=== PATIENT | male | born 1965 | race Caucasian/White ===

== ENCOUNTER 2022-12-10 08:57 | Emergency (ER) | payer OTHER, SELFPAY ==
[2022-12-10 08:59] VITALS: BP 172/84; PULSE 86; RESP 14; TEMP 36.2; O2SAT 97; BMI 30.2
--- NOTE | 2022-12-10 09:14 | CT_ITS ---
STUDY: CT SOFT TISSUE NECK WITH CONTRAST REASON FOR EXAM: Male, 57 years old. Suspected tongue cancer with right-sided cervical RADIATION DOSAGE (If Supplied By Facility): CTDIvol = ( 12.20 ) mGy, DLP = ( 368.74 ) mGycm TECHNIQUE: The patient was scanned in a multi-detector CT scanner. High resolution transaxial imaging was performed following intravenous administration of 75mL Isvoue 370. Sagittal and coronal images were reconstructed. Individualized dose optimization techniques were used for this CT. COMPARISON: None. FINDINGS: Abnormal suspicious soft tissue densities lateral to the right carotid vessels with subtle heterogeneous enhancement. These soft tissue densities are suspicious for likely metastatic adenopathy. Largest measures 1.72 x 3.16 cm, the next largest measures 2.24 x 1.57 cm. They are not occluding or impinging upon the right ICA or ECA. There are multiple other associated lymph nodes but all of these measure less than 1 cm in short axis dimension. No suspicious adenopathy noted in the left half of the neck. A PET/CT study could be performed to determine if these are metabolically active or biopsy could be performed for tissue sampling. Normal bilateral parotid glands. Normal bilateral superintendent plant spaces. Normal bilateral parapharyngeal spaces. Normal bilateral carotid spaces. Normal bilateral sublingual and submandibular glands and spaces. Normal visualized nasopharynx. Normal retropharyngeal space. Normal perivertebral space. Normal visualized bilateral faucial tonsils. The visualized tongue, tongue base and oropharynx are normal. . Normal epiglottis, bilateral vallecula and hypopharynx. The pre-epiglottic and paraglottic adipose spaces are normal. Normal visualized bilateral piriform sinuses, aryepiglottic folds, vocal cords, and arytenoid-cricoid articulations. Normal subglottic trachea. Normal bilateral lobes of the thyroid gland. Normal visualized pulmonary apices. There is multilevel degenerative changes of the cervical spine. CT/Soft Tissue Neck WITH Contrast IMPRESSION: Suspicious cluster of soft tissue densities between the right parotid gland and the carotid vessels concerning for metastatic lymphadenopathy. Largest of these soft tissue densities measures 1.72 x 3.16 cm. There are also multiple subcentimeter in short axis dimension lymph nodes in the right neck. There are only a few scattered physiologic lymph nodes noted in the left neck. No airway narrowing or deviation Degenerative changes throughout the cervical spine, no demonstrated fracture or suspicious osseous lesion Lung apices are clear Electronically Signed: Kojo Mcintyre MD at 10:38 EST ,
--- NOTE | 2022-12-10 09:14 | CT_ITS ---
STUDY: CT BRAIN WITHOUT CONTRAST REASON FOR EXAM: Male, 57 years old. Oral cancer RADIATION DOSAGE (If Supplied By Facility): CTDIvol = ( 44.99 ) mGy, DLP = ( 846.73 ) mGycm TECHNIQUE: Transaxial CT imaging of the brain was performed without administration of intravenous contrast material. Individualized dose optimization techniques were used for this CT. COMPARISON: No relevant priors. FINDINGS: Normal soft tissue structures. Normal calvarium. There is mild cerebral atrophy with widening of the extra-axial spaces and ventricular dilatation. There are areas of decreased attenuation within the white matter tracts of the supratentorial brain, consistent with microvascular disease changes. Normal basal ganglia and thalami. Normal brainstem. Normal cerebellum. There is no intracranial hemorrhage. There are no findings of an acute ischemic infarction. There is mucoperiosteal inflammatory disease of the paranasal sinuses consistent with moderate chronic sinusitis. Occlusion of both ostiomeatal complexes CT/Brain/Head without Contrast IMPRESSION: Chronic involutional changes of the brain. No acute hemorrhage Electronically Signed: Kojo Mcintyre MD at 10:30 EST ,
--- NOTE | 2022-12-10 09:16 | EDS_ITS ---
HPI HPI - URI History of Present Illness Chief Complaint: Edema Detail of Chief Complaint: Right-sided tongue swelling for 3 months. Informant: patient Onset/Context/Timing Onset: Month(s) Context: Gradual Onset Timing: Continuous Current Severity: Moderate Maximum Severity: Moderate Narrative Narrative: 57-year-old male goes to the [facility]. Prior tonsillectomy and treated for hypertension. He has had right-sided tongue swelling for 3 months and now has swelling to his right side of his face and right anterior neck for last 2 weeks. He has had about a 14 pound weight loss. He smokes 2 packs a day for last 40 years. Drinks almost daily. No history of cancer. Was seen today in urgent care and sent to the emergency department. Prior similar symptoms: Yes Recent Illness/Hospitalization: No ROS ROS ED ROS Narrative Tongue swelling. Constitutional Constitutional ED: Denies chills Eyes Eyes: Denies blurry vision ENT ENT ED: Denies ear pain Cardiovascular Cardiovascular: Denies chest pain or palpitations Respiratory/Chest Respiratory/Chest: Denies cough or dyspnea Gastrointestinal Gastrointestinal: Denies abdominal pain, constipation or diarrhea Genitourinary Genitourinary ED: Denies dysuria or hematuria Musculoskeletal Musculoskeletal: Denies arthralgias, back pain or myalgias Integumentary Denies abscess or Abrasions Neurologic Neurologic: Denies headache(s) Psychiatric Psychiatric: Denies anxiety Endocrine Endocrinology: Denies cold intolerance Hematologic/Lymphatic Hematologic/Lymphatic: Denies easy bleeding Allergic/Immunologic Allergic/Immunologic ED: Reports tongue swelling; Denies mouth swelling PFSH PFSH Medical History no medical history Allergy/AdvReac Type Severity Reaction Status Date / Time No Known Allergies Allergy Verified 12/10/22 08:58 Surgical History no surgical history Social History Smoking Status: Never smoker EXAM Physical Exam Narrative Exam Narrative: 37-year-old male no acute distress. Vital signs are stable afebrile. H EENT exam right TM normal old healed perforation. Right side of his tongue is swollen has a firm hard mass along the right lateral aspect of the tongue very concerning for malignancy. He has false teeth. No trouble swallowing or breathing. Neck is anterior lymphadenopathy on the right side of his trachea is midline. Lungs clear. Heart regular rhythm. Abdomen soft nontender. Moving all 4 extremities. Nontender no edema. Normal strength. Neurologically is awake and alert with no focal motor deficits. Const Vital Signs: 12/10/22 08:59 12/10/22 09:01 Temperature 97.2 F L Temperature Source Temporal Pulse Rate 86 Respiratory Rate 14 Respiratory Pattern Normal Blood Pressure 172/84 H Blood Pressure Mean 113 Pulse Ox 97 Oxygen Delivery Method Room Air Positive well nourished and well developed; Negative for cachectic or contractures General Appearance ED: well developed and NAD; Negative for cachectic, contractures, cyanotic, diaphoretic or pallor Nutritional Appearance: Negative for cachectic HEENT Reports moist mucous membranes; Denies dry mucous membranes HEENT Narrative: Swollen right side of his tongue. Hard mass concerning for malignancy. No trouble swallowing or breathing. normocephalic and atraumatic Mouth ED: No dry mucous membranes Mouth: No dry mucous membranes Throat: posterior oropharynx normal Eyes PERRL and EOMs intact bilaterally General Eye ED: Negative for pale conjunctiva or scleral icterus Neck No no lymphadenopathy, supple, no meningeal signs and no JVD General: anterior neck swelling and lymphadenopathy Resp normal respiratory effort and clear to auscultation bilaterally Effort and Inspection: Negative for retractions Auscultation: Negative for rales, rhonchi or wheezes Cardio S1 normal heart sound, S2 normal heart sound and no murmurs Rate: regular rate Rhythm: regular rhythm GI non-tender, non-distended and no masses Inspection: Negative for abdominal distention Auscultation: normoactive bowel sounds Palpation: soft; Negative for tender Back/Spine no CVA tenderness and normal ROM General Back: Negative for CVA tenderness Cervical Spine: Negative for cervical spine tenderness Thoracic Spine / Upper Back: Negative for thoracic spinal tenderness Lumbar Spine / Lower Back: Negative for lumbar spinal tenderness Sacrum: Negative for tenderness Extremity normal to inspection and full ROM General Extremety ED: Negative for cyanosis or tenderness General Extremity: Negative for cyanosis Neuro oriented x3 and CN's II-XII intact bilaterally Sensorium / Orientation: alert, oriented to person, oriented to place and oriented to time; Negative for orientation impaired, lethargic or stuporous Motor Exam: strength 5/5 throughout Psych mental status grossly normal Appearance: Negative for other Attitude: No agitated Mood & Affect: Negative for depressed, anxious or tearful Skin General Skin Exam: Negative for jaundice or pallor Lesions: no lesions Rashes: no rashes Trauma: Negative for abrasion MDM MDM MDM Narrative Medical decision making narrative: 57-year-old male with longtime history of smoking and alcohol use. Very concerning for a oral malignancy in the right side of his tongue with metastases to his lymph nodes. head and neck is being obtained. Repeat exam unchanged. Discussed test results and CAT scan with the patient. He will be referred to Dr. Raymond Bailey of ENT. [facility] He knows my concern. I instructed him to call them today to get close follow-up and follow-up with a ENT either locally or with the [place]. He is doing well currently. No trouble swallowing or breathing. Lab Data Attestation: I reviewed the patient's lab results. Lab results narrative: CBC normal. White count of 7. H&H is 16 and 50. Platelet count of 303. Electrolytes sodium 134. Gap of 7 normal BUN and creatinine. Normal liver enzymes. Glucose of 120. Alk phos of 134. CAT scan is concerning for oral cancer with lymphadenopathy in the neck. Labs: Laboratory Results - last 24 hr 12/10/22 12/10/22 09:30 09:30 WBC 7.4 RBC 5.68 Hgb 16.7 H Hct 50.1 MCV 88.2 MCH 29.4 MCHC 33.3 RDW Std Deviation 42.1 RDW Coeff of Mary 13.0 Plt Count 303 MPV 9.2 Immature Gran % (Auto) 0.800 Neut % (Auto) 68.5 Lymph % (Auto) 18.9 L [place] % (Auto) 8.1 Eos % (Auto) 2.8 Baso % (Auto) 0.9 Absolute Neuts (auto) 5.1 Absolute Lymphs (auto) 1.40 Nucleated RBC % 0 Sodium 134 L Potassium 4.2 Chloride 98 Carbon Dioxide 29.0 Anion Gap 7 BUN 13 Creatinine 0.85 Estim Creat Clear Calc 93.57 Est GFR (MDRD) Af Amer 119 Est GFR (MDRD) Non-Af 98 BUN/Creatinine Ratio 15.3 Glucose 120 H Calcium 9.2 Total Bilirubin 0.50 AST 29 ALT 61 Alkaline Phosphatase 134 H Total Protein 8.0 Albumin 3.8 Globulin 4.2 Albumin/Globulin Ratio 0.9 Radiography Diagnostic Testing: Clinical Impression(s) from Imaging Studies Brain CT 12/10/22 09:14 IMPRESSION: Chronic involutional changes of the brain. No acute hemorrhage Electronically Signed: Kojo Mcintyre MD at 10:30 EST , Soft Tissue Neck CT 12/10/22 09:14 IMPRESSION: Suspicious cluster of soft tissue densities between the right parotid gland and the carotid vessels concerning for metastatic lymphadenopathy. Largest of these soft tissue densities measures 1.72 x 3.16 cm. There are also multiple subcentimeter in short axis dimension lymph nodes in the right neck. There are only a few scattered physiologic lymph nodes noted in the left neck. No airway narrowing or deviation Degenerative changes throughout the cervical spine, no demonstrated fracture or suspicious osseous lesion Lung apices are clear Electronically Signed: Kojo Mcintyre MD at 10:38 EST , Discharge Plan Triage Chief Complaint: Edema ED Provider: Tolu Gilliland Dx/Rx/DC Orders Clinical Impression: Cancer of tongue Instructions: ED Tumor, Uncertain Cause Primary Care Provider: [facility] Referrals: Marv Torres MD [Med Staff - Active Staff] - As soon as possible [facility] [Primary Care Provider] - 1 Day Activity Restrictions/Additional Instructions: Call the [employer] [place] Friday. Tell them my concern is you may have developed tongue cancer with spread to the lymph nodes in your neck. This is not a confirmed diagnosis at this time you need a biopsy of your tongue. They need to get you in with them and a tailor men's ready to wear as soon as possible to get a biopsy, make a diagnosis and start treatment as soon as possible. This is very important. Please do not wait. If you can we have the ear nose and throat doctors here in [place] that you can follow-up with. Disposition Disposition: Home, Self Care
[2022-12-10 09:45] LABS: Absolute Neutrophil Count 5.1 X10^3/uL (2.0-7.7); Basophil# 0.07 X10^3/uL; Basophil% 0.9 % (0-1); Eosinophil# 0.21 X10^3/uL; Eosinophils% 2.8 % (0-5); Hematocrit 50.1 % (40-54); Hemoglobin 16.7 g/dL (13.0-16.5); Lymphocyte % 18.9 % (19-41); Mean Corp Hgb Conc 33.3 g/dL (32-36); Mean Corpuscular Hgb 29.4 pg (27.0-32.0); Mean Corpuscular Volume 88.2 fL (80-94); Mean Platelet Vol. 9.2 fl (6.2-12.0); Monocyte% 8.1 % (0-10); NRBC Flagged by Analyzer 0 % (0-5); Neutrophil # 5.05 X10^3/uL (2.7-7.7); Neutrophil % 68.5 % (47-70); Platelet Count 303 K/mm3 (150-450); RBC Distribution Width SD 42.1 fl (35.1-43.9); Red Blood Count 5.68 M/mm3 (4.6-6.2); White Blood Count 7.4 K/mm3 (4.4-11.0)
[2022-12-10 10:09] LABS: ALB/GLOB Ratio 0.9 RATIO (0.9-2.4); AST(SGOT) 29 U/L (15-37); Alanine Aminotransfer ALT/SGPT 61 U/L (16-61); Albumin, Serum 3.8 g/dL (3.2-5.0); Alkaline Phosphatase 134 U/L (45-117); Anion Gap 7 (5-15); BUN 13 mg/dL (7-18); BUN/Creat Ratio 15.3 RATIO (10-20); Calcium,Total 9.2 mg/dL (8.5-10.1); Chloride 98 mmol/L (98-107); Creatinine, Serum 0.85 mg/dL (0.70-1.30); EST Glomerular Filtration Rate 98 mL/min (>60); Est Glom Filt Rate - Afr Amer 119 mL/min (>60); Estimated Creatinine Clearance 93.57 ml/min; Globulin 4.2 g/dL (2.2-4.2); Glucose 120 mg/dL (74-106); Potassium 4.2 mmol/L (3.5-5.1); Sodium Level 134 mmol/L (136-145)
[2022-12-10 11:38] VITALS: BP 128/74; PULSE 68; RESP 15; O2SAT 97
== END 2022-12-10 11:40 | disposition home or self-care (01) ==
PROVIDERS: Emergency Provider Emergency Medicine; Visit Provider Emergency Medicine
DX: C02.9 Malignant neoplasm of tongue, unspecified (principal); I10 Essential (primary) hypertension; R60.9 Edema, unspecified; F17.210 Nicotine dependence, cigarettes, uncomplicated
CPT/HCPCS: 70450; 70491; 80053; 85025; 99283; Q9967; A4216

== ENCOUNTER 2023-04-20 18:05 | Emergency (ER) | payer OTHER, SELFPAY ==
[2023-04-20] VITALS (19 sets, daily range): BP systolic 111–162; BP diastolic 63–93; PULSE 88–117; RESP 12–26; TEMP 35.9; O2SAT 5–100; BMI 22.4
--- NOTE | 2023-04-20 18:25 | CT_ITS ---
STUDY: CTA CHEST REASON FOR EXAM: Male, 58 years old. Dyspnea. History of tongue cancer. RADIATION DOSAGE (If Supplied By Facility): CTDIvol = ( 29.04 ) mGy, DLP = ( 2864.26 ) mGycm TECHNIQUE: The examination was performed with the intravenous administration of IV 100mL Isovue-370. Post-processing of the angiographic images was performed, with multiplanar reformation and 3D reconstruction. Individualized dose optimization techniques were used for this CT. COMPARISON: Chest, April 20, 2023. FINDINGS: Normal enhancement of the main pulmonary artery and right and left pulmonary arteries. Normal enhancement of the bilateral peripheral pulmonary arteries. There is no demonstrated pulmonary embolism. Atherosclerotic changes of the thoracic aorta without aneurysm. There is no demonstrated aortic dissection. Normal heart and pericardium. Coronary artery calcifications. There is a 3.4 x 3.7 x 5 cm soft tissue mass in the subcarinal region there is a calcified lymph node due to its left. There is a 2.9 x 2.4 x 3.8 cm paratracheal lymph node as well as a 2.0 x 1.4 x 1.9 cm AP window lymph node. There is soft tissue mass in the right hilum measuring 2.8 x 2.3 x 3.1 cm in the lower left hilum there is a 3.9 x 3.1 x 1.6 cm soft tissue mass. This appears to extend outward into enlarged bronchi of the posterior right lower lobe when correlated with the plain film findings. Normal visualized trachea and left bronchi. The lungs are hyper expanded, with flattening of the hemidiaphragms. There is pleural-based density in the right lung base. There is minimal atelectatic changes in the right upper lobe along the oblique fissure with a vague 4 mm nodular density in the right upper lobe best seen on image 104 of series 3 using lung windows. A 1 cm calcified granuloma seen posteriorly in the left lower lobe. Minimal pleural thickening in the posterior right lung base with linear calcifications along the posterior pleural surface.. There is evidence of a fracture of the posterior left 10th rib thought to be a pathologic fracture with surrounding soft tissue mass. At the base of the neck there are large low attenuation masses which are incompletely visualized. That on the right measures 4.9 x 3.6 cm. The left mass measures 4.9 x 6.7 cm. Both extend upward into the neck. Relative changes of the thoracic spine. There is a soft tissue mass arising from the anterior aspect of the eighth vertebral body extending into the anterior soft tissues which measures 1.7 x 1.8 x 1.6 cm. There is also a low-attenuation mass in the right vertebral body of T9 measuring 1.4 x 1.3 x 1.2 cm. Enlarged fatty infiltrated liver without focal mass. CT/CTA Chest W/WO Contrast IMPRESSION: 1. No evidence of pulmonary embolus. 2. No aortic dissection or aneurysm. 3. Mediastinal and right hilar lymphadenopathy. 4. Soft tissue extending from the right hilum along the bronchi into the right lower lobe with atelectasis and pleural reaction. 5. Small nodular density in the right upper lobe. 6. Calcified granuloma in the left lung base. 7. Large necrotic soft tissue masses at the base of the neck. These are incompletely evaluated. 8. Metastatic foci within the thoracic spine. 9. Metastatic fracture of the left posterior seventh rib with associated soft tissue mass. Electronically Signed: Owen Thomas DO at 20:07 EDT Reading Location ID and State: [id number] Tel [phone], Service support ,
--- NOTE | 2023-04-20 18:25 | EKG12_ITS ---
Test Reason : DYSRHYTHMIA Blood Pressure : / mmHG Vent. Rate : 107 BPM Atrial Rate : 107 BPM P-R Int : 226 ms QRS Dur : 126 ms QT Int : 334 ms P-R-T Axes : 060 -63 086 degrees QTc Int : 445 ms Sinus tachycardia with 1st degree A-V block Left axis deviation Left bundle branch block Abnormal ECG Confirmed by HASMUKH LUNDY, CRISTOFER ([id number]), editor at [employer] ([id number]) on 04/21/2023 10:21:28 AM Referred By: PRIYA Confirmed By:CRISTOFER NOE MD
--- NOTE | 2023-04-20 18:25 | CT_ITS ---
STUDY: CTA HEAD AND NECK WITH CONTRAST REASON FOR EXAM: Male, 58 years old. Chest pain. History of tongue cancer. RADIATION DOSAGE (If Supplied By Facility): CTDIvol = ( 29.04 ) mGy, DLP = ( 2864.26 ) mGycm TECHNIQUE: CT angiography was performed with a multi-detector CT scanner. Data acquisition was obtained from the skull base through the vertex following intravenous administration of IV 100mL Isovue-370. MIP images were reconstructed from the axial data set. Post-processing of the angiographic images was performed, with multiplanar reformation and 3D reconstruction. Individualized dose optimization techniques were used for this CT. COMPARISON: CT of the soft tissues of neck, December 10, 2022. FINDINGS: Normal bilateral petrous carotid arteries. There is calcified plaque formation of the right cavernous carotid artery, with a mild stenosis (less than 50%). There is calcified plaque formation of the left cavernous carotid artery, with a mild stenosis (less than 50%). Normal right A1 segments of the anterior cerebral artery. Normal left A1 segments of the anterior cerebral artery. Normal intact anterior communicating artery (ACOM). Normal bilateral A2 segments of the anterior cerebral arteries. Normal right M1 and M2 segments of the middle cerebral arteries, with a normal M1 bifurcation. Normal left M1 and M2 segments of the middle cerebral arteries, with a normal M1 bifurcation. There is non-visualization of the right posterior communicating artery (PCOM). There is non-visualization of the left posterior communicating artery (PCOM). Normal bilateral vertebral arteries. Normal basilar artery with a normal basilar bifurcation. The visualized bilateral superior cerebellar (SCA) arteries are normal. Normal bilateral P1, P2 and visualized P3 segments of the posterior cerebral arteries. There is no demonstrated aneurysm of the [place]. There is no demonstrated abnormality of the visualized brain. AORTIC ARCH: Minimal atherosclerotic changes of the aortic arch without aneurysm. Normal origins of the brachiocephalic, left common carotid, and left subclavian arteries. RIGHT CAROTID ARTERIES: Scattered atherosclerotic changes along the course of the right common carotid artery (CCA) without stenosis.. There is marked atherosclerotic changes at the carotid bifurcation extending into the carotid bulb. There is an approximate 60 % stenosis. Normal origin of the right internal carotid (ICA) artery without a hemodynamically significant stenosis. Normal visualized cervical portion of the right internal carotid artery. Mild atherosclerotic changes at origin of the right external carotid artery (ECA) without stenosis.. LEFT CAROTID ARTERIES: Scattered atherosclerotic plaque along the course of the left common carotid artery (CCA) without stenosis. Atherosclerotic changes at the carotid bifurcation extending into the carotid bulb with less than 50% stenosis Normal origin of the left internal carotid (ICA) artery without a hemodynamically significant stenosis. Normal visualized cervical portion of the left internal carotid artery. Atherosclerotic changes at the origin of the left external carotid artery (ECA) without stenosis.. VERTEBRAL ARTERIES: Normal bilateral vertebral arteries. There are soft tissue masses in the mediastinum predominantly right-sided. There are large necrotic appearing soft tissue masses in the bilateral neck which were not appreciated on the previous examination. A mass in the right neck measures roughly 5.7 x 3.6 x 11.3 cm. There is 6.5 x 5.[address]/CTA Head AND Neck W/ Contrast IMPRESSION: 1. Normal CTA of the head. 2. Bilateral carotid artery atherosclerotic changes. There is an approximately 50-60 percent stenosis of the right carotid bifurcation. No significant narrowing is seen on the right. 3. Mediastinal and bilateral neck masses consistent with metastatic disease. Electronically Signed: Owen Thomas DO at 20:15 EDT ,
--- NOTE | 2023-04-20 18:32 | ED.VIS.DYS ---
HPI History of Present Illness Chief Complaint: Shortness of Breath Narrative Narrative: 58-year-old male with history of squamous cell carcinoma of the tongue currently getting cancer therapy from the [place]. He states this is in [place]. Patient reports that he had his last chemo on the . He also received radiation therapy last on the of last month. He states he had 4 treatments. There was 2 days that he went both morning and night. His last chemotherapy was the fourth round. Patient states has been short of breath over the last week. He notes that he has a mass growing out of the left side of his neck which is new this week. Worse since Friday. He has not tried to go to the [place] [facility] during [facility]. Patient denies any other medical problems. No fevers or chills. No nausea or vomiting. He does report that he has some chest tightness in the left upper chest. PFSH PFS Home Medications amlodipine 10 mg tablet 10 mg PO DAILY 04/20/23 [History Last Taken Unknown] aspirin 81 mg tablet,delayed release 81 mg PO DAILY 04/20/23 [History Last Taken Unknown] hydrochlorothiazide 25 mg tablet 25 mg PO DAILY 04/20/23 [History Last Taken Unknown] oxycodone 10 mg tablet 10 mg PO Q6H PRN Pain 04/20/23 [History Last Taken Unknown] prochlorperazine maleate 10 mg tablet 10 mg PO Q6H PRN Nausea 04/20/23 [History Last Taken Unknown] Allergy/AdvReac Type Severity Reaction Status Date / Time No Known Allergies Allergy Verified 04/20/23 18:09 Social History Smoking Status: Former smoker ROS ROS ED Constitutional Constitutional ED: Denies chills, fever(s) or sweats Eyes Eyes: Denies blurry vision or change in vision ENT ENT ED: Denies ear pain or sore throat Cardiovascular Cardiovascular: Reports chest pain and palpitations; Denies racing heartbeat Respiratory/Chest Respiratory/Chest: Reports dyspnea and dyspnea on exertion; Denies cough or sputum Gastrointestinal Gastrointestinal: Denies abdominal pain, constipation, diarrhea, nausea or vomiting Genitourinary Genitourinary ED: Denies dysuria, hematuria or urinary frequency Musculoskeletal Musculoskeletal: Denies arthralgias, myalgias or neck pain Integumentary Denies abscess, Abrasions or rash Neurologic Neurologic: Denies headache(s), paresthesias or weakness Psychiatric Psychiatric: Denies anxiety, depression, suicidal ideation or suicidal thoughts Endocrine Endocrinology: Denies polydipsia or polyuria EXAM Physical Exam Const Vital Signs: 04/20/23 18:06 04/20/23 18:11 04/20/23 19:11 Temperature 96.7 F L Temperature Source Temporal Pulse Rate 117 H Respiratory Rate 24 H Respiratory Effort Labored Accessory Muscle Use Respiratory Pattern Tachypnea Blood Pressure 119/93 H Blood Pressure Mean 101 Pulse Ox 80 74 Oxygen Delivery Method Room Air Room Air Nasal Cannula Oxygen Flow Rate (L/min) 4 Fraction of Inspired Oxygen (FIO2) 04/20/23 19:05 04/20/23 19:05 04/20/23 19:05 Temperature Temperature Source Pulse Rate Respiratory Rate Respiratory Effort Respiratory Pattern Blood Pressure Blood Pressure Mean Pulse Ox 90 93 5 Oxygen Delivery Method Nasal Cannula Nasal Cannula Nasal Cannula Oxygen Flow Rate (L/min) 4 5 Fraction of Inspired Oxygen (FIO2) 04/20/23 20:00 04/20/23 20:25 04/20/23 20:26 Temperature Temperature Source Pulse Rate 116 H Respiratory Rate 23 H Respiratory Effort Respiratory Pattern Blood Pressure 150/74 H Blood Pressure Mean 99 Pulse Ox 96 78 90 Oxygen Delivery Method Nasal Cannula Room Air Non-Rebreather Oxygen Flow Rate (L/min) 5 15 Fraction of Inspired Oxygen (FIO2) 04/20/23 20:45 04/20/23 21:57 Temperature Temperature Source Pulse Rate 113 H 97 Respiratory Rate 26 H 23 H Respiratory Effort Respiratory Pattern Tachypnea Blood Pressure 156/78 H Blood Pressure Mean 104 Pulse Ox 88 100 Oxygen Delivery Method Bi-pap Oxygen Flow Rate (L/min) Fraction of Inspired Oxygen (FIO2) 100 80 Positive unkempt General Appearance ED: unkempt HEENT Reports dry mucous membranes HEENT Narrative: Large mass noted on the right side of the neck and face. Trachea midline. There is a small 2 cm mass growing off the trapezius on the left. atraumatic Mouth ED: Yes dry mucous membranes Mouth: dry mucous membranes Eyes PERRL and EOMs intact bilaterally Resp clear to auscultation bilaterally Resp Narrative: Tachypneic Cardio regular rhythm Rate: tachycardic GI non-tender Neuro oriented x3 and CN's II-XII intact bilaterally Sensorium / Orientation: alert Psych Appearance: unkempt Skin Skin Narrative: As described above MDM MDM MDM Narrative Medical decision making narrative: 58-year-old male presenting with respiratory distress. He is lungs are clear but I suspect his masses in his neck are causing difficulty breathing. I do not hear any stridor. Given patient's abnormal vital signs sepsis work-up was obtained. Differential includes pneumonia, metastatic cancer, PE, pneumothorax, electrolyte abnormalities, dehydration, anemia, aortic dissection. Patient initially ordered a liter of normal saline. CBC was obtained and shows a leukocytosis of 21.0. Hemoglobin is 8.8 and is significantly lower than the 16 he was previously in December. He was hemocculted and this was negative. CBC does show a left shift. Platelets are normal. PT/INR within normal limits. Lactic acid minimally elevated 2.1. EKG on my interpretation shows a sinus tachycardia with a first-degree AV block at a rate of 107 bpm with left bundle branch. Chest x-ray concerning for possible pneumonia in the right lower lobe so patient was given vancomycin and Zosyn. I feel this is reasonable given his hypoxia and his tachycardia as well as his leukocytosis. Urinalysis negative for infection. Creatinine is normal. CO2 slightly elevated at 34. BUN normal. Glucose 211. Sodium is 130. I checked a magnesium and this was normal so he was given 40 units of IV potassium. He is given a second liter of IV fluids. CTA head and neck show worsening metastasis. I do believe that the masses in the neck causing airway issue and this is why he is hypoxic. He does not have any evidence of PEs on his CTA of the chest. He does show metastatic disease including the rib, spine. Discussed with the hospitalist for admission however she felt that the airway issue was problematic and recommended a place where there was ENT he has been on have any ENT coverage. Discussed with Jocelyn santos and I spoke with a Dr. Jaramillo who stated that he was concerned the patient needed to have a 24-hour history ENT available. [place] [facility] be [place] [facility] [place]. There is also a call out to [facility] in [place]. Patient became hypoxic after he stood and had to be placed on BiPAP but he is stable on this. I did give the patient a dose of 10 mg of dexamethasone to see if that would help the airway.The patient was signed out to the incoming ED physician for monitoring until placement can occur. Impression: 1. Metastatic squamous cell carcinoma 2. Hypoxic respiratory failure 3. Leukocytosis 4. Anemia Lab Data Labs: Laboratory Results - last 24 hr 04/20/23 04/20/23 04/20/23 18:32 18:33 18:33 WBC 21.0 H RBC 3.14 L Hgb 8.8 L Hct 27.9 L MCV 88.9 MCH 28.0 MCHC 31.5 L RDW Std Deviation 56.2 H RDW Coeff of Mayr 18.2 H Plt Count 278 MPV 9.9 Immature Gran % (Auto) 2.200 H Neut % (Auto) 87.9 H Lymph % (Auto) 2.2 L Power % (Auto) 7.4 Eos % (Auto) 0.0 Baso % (Auto) 0.3 Absolute Neuts (auto) 18.4 H Absolute Lymphs (auto) 0.47 L Nucleated RBC % 0.1 Differential Comment SCANNED Diff Path Review March foll PT 14.1 INR 1.1 APTT 23.2 L Sodium Potassium Chloride Carbon Dioxide Anion Gap BUN Creatinine Estim Creat Clear Calc Est GFR (MDRD) Af Amer Est GFR (MDRD) Non-Af BUN/Creatinine Ratio Glucose Lactic Acid 2.1 H* Calcium Magnesium Total Bilirubin AST ALT Alkaline Phosphatase Troponin I High Sens Total Protein Albumin Globulin Albumin/Globulin Ratio Urine Color Urine Clarity Urine pH Ur Specific [place] Urine Protein Urine Glucose (UA) Urine Ketones Urine Occult Blood Urine Nitrite Urine Bilirubin Urine Urobilinogen Ur Leukocyte Esterase Urine RBC Urine WBC Ur Squamous Epith Cells Urine Bacteria Urine Mucus Blood Type Antibody Screen 04/20/23 04/20/23 04/20/23 18:33 18:33 19:25 WBC RBC Hgb Hct MCV MCH MCHC RDW Std Deviation RDW Coeff of Mary Plt Count MPV Immature Gran % (Auto) Neut % (Auto) Lymph % (Auto) Power % (Auto) Eos % (Auto) Baso % (Auto) Absolute Neuts (auto) Absolute Lymphs (auto) Nucleated RBC % Differential Comment Diff Path Review PT INR APTT Sodium 130 L Potassium 2.6 L* Chloride 87 L Carbon Dioxide 34.0 H Anion Gap 9 BUN 10 Creatinine 0.69 L Estim Creat Clear Calc 111.11 Est GFR (MDRD) Af Amer 150 Est GFR (MDRD) Non-Af 124 BUN/Creatinine Ratio 14.5 Glucose 211 H Lactic Acid Calcium 12.1 H Magnesium 2.1 Total Bilirubin 0.50 AST 38 H ALT 49 Alkaline Phosphatase 186 H Troponin I High Sens 9 Total Protein 7.1 Albumin 2.7 L Globulin 4.4 H Albumin/Globulin Ratio 0.6 L Urine Color Urine Clarity Urine pH Ur Specific [place] Urine Protein Urine Glucose (UA) Urine Ketones Urine Occult Blood Urine Nitrite Urine Bilirubin Urine Urobilinogen Ur Leukocyte Esterase Urine RBC Urine WBC Ur Squamous Epith Cells Urine Bacteria Urine Mucus Blood Type O NEGATIVE Antibody Screen NEGATIVE 04/20/23 20:14 WBC RBC Hgb Hct MCV MCH MCHC RDW Std Deviation RDW Coeff of Mary Plt Count MPV Immature Gran % (Auto) Neut % (Auto) Lymph % (Auto) Power % (Auto) Eos % (Auto) Baso % (Auto) Absolute Neuts (auto) Absolute Lymphs (auto) Nucleated RBC % Differential Comment Diff Path Review PT INR APTT Sodium Potassium Chloride Carbon Dioxide Anion Gap BUN Creatinine Estim Creat Clear Calc Est GFR (MDRD) Af Amer Est GFR (MDRD) Non-Af BUN/Creatinine Ratio Glucose Lactic Acid Calcium Magnesium Total Bilirubin AST ALT Alkaline Phosphatase Troponin I High Sens Total Protein Albumin Globulin Albumin/Globulin Ratio Urine Color Yellow Urine Clarity Sl Cldy Urine pH 7.0 Ur Specific [place] 1.010 Urine Protein 100 H Urine Glucose (UA) Normal Urine Ketones Negative Urine Occult Blood Negative Urine Nitrite Negative Urine Bilirubin Negative Urine Urobilinogen Normal Ur Leukocyte Esterase Negative Urine RBC 0 SEEN Urine WBC 0 SEEN Ur Squamous Epith Cells 0 SEEN Urine Bacteria 0 SEEN Urine Mucus 0 SEEN Blood Type Antibody Screen Radiography Diagnostic Testing: Clinical Impression(s) from Imaging Studies Chest CTA 04/20/23 18:25 IMPRESSION: 1. No evidence of pulmonary embolus. 2. No aortic dissection or aneurysm. 3. Mediastinal and right hilar lymphadenopathy. 4. Soft tissue extending from the right hilum along the bronchi into the right lower lobe with atelectasis and pleural reaction. 5. Small nodular density in the right upper lobe. 6. Calcified granuloma in the left lung base. 7. Large necrotic soft tissue masses at the base of the neck. These are incompletely evaluated. 8. Metastatic foci within the thoracic spine. 9. Metastatic fracture of the left posterior seventh rib with associated soft tissue mass. Electronically Signed: Owen Thomas DO at 20:07 EDT Reading Location ID and State: [facility] / [place] Tel [phone], Service support , Head/Neck CTA 04/20/23 18:25 IMPRESSION: 1. Normal CTA of the head. 2. Bilateral carotid artery atherosclerotic changes. There is an approximately 50-60 percent stenosis of the right carotid bifurcation. No significant narrowing is seen on the right. 3. Mediastinal and bilateral neck masses consistent with metastatic disease. Electronically Signed: Owen Thomas DO at 20:15 EDT Reading Location ID and State: [facility] / [place] Tel [phone], Service support , Chest X-Ray 04/20/23 19:35 IMPRESSION: 1. Question infiltrate versus malignancy involving the right lower lobe. 2. Calcified granuloma at the left lung base. Electronically Signed: Owen Thomas DO at 19:51 EDT Reading Location ID and State: [facility] / [place] Tel [phone], Service support , Discharge Plan Triage Chief Complaint: Shortness of Breath Other Complaint: Abscess ED Provider: Anton Graham Dx/Rx/DC Orders Prescriptions: No Action prochlorperazine maleate 10 mg Tablet 10 mg PO Q6H PRN (Reason: Nausea) aspirin [Aspir-81] 81 mg Tablet,Delayed Release (Dr/Ec) 81 mg PO DAILY amlodipine 10 mg Tablet 10 mg PO DAILY hydrochlorothiazide 25 mg Tablet 25 mg PO DAILY oxycodone 10 mg Tablet 10 mg PO Q6H PRN (Reason: Pain) [facility] Care Provider: [facility] Referrals: [place] [Primary Care Provider] -
[2023-04-20 18:52] LABS: Absolute Lymphocyte Count 0.47 X10^3/uL (0.83-4.51); Absolute Neutrophil Count 18.4 X10^3/uL (2.0-7.7); Basophil# 0.06 X10^3/uL; Basophil% 0.3 % (0-1); Eosinophil# 0.01 X10^3/uL; Hematocrit 27.9 % (40-54); Hemoglobin 8.8 g/dL (13.0-16.5); Lymphocyte # 0.47 X10^3/ul (0.83-4.51); Lymphocyte % 2.2 % (19-41); Mean Corp Hgb Conc 31.5 g/dL (32-36); Mean Corpuscular Volume 88.9 fL (80-94); Mean Platelet Vol. 9.9 fl (6.2-12.0); Monocyte# 1.54 X10^3/uL; Monocyte% 7.4 % (0-10); NRBC Flagged by Analyzer 0.1 % (0-5); Neutrophil % 87.9 % (47-70); POSITIVE DIFFERENTIAL YES; Platelet Count 278 K/mm3 (150-450); RBC Distribution Width CV 18.2 % (11.6-14.6); RBC Distribution Width SD 56.2 fl (35.1-43.9); Red Blood Count 3.14 M/mm3 (4.6-6.2)
[2023-04-20 18:56] LABS: Differential Indicated SCAN CRITERIA MET
[2023-04-20 19:10] LABS: International Normalized Ratio 1.1; Partial Thromboplast Time 23.2 Seconds (24.1-36.2); Prothrombin Time (Protime)PT. 14.1 SECONDS (11.7-14.9)
[2023-04-20 19:14] LABS: ALB/GLOB Ratio 0.6 RATIO (0.9-2.4); AST(SGOT) 38 U/L (15-37); Alanine Aminotransfer ALT/SGPT 49 U/L (16-61); Albumin, Serum 2.7 g/dL (3.2-5.0); Alkaline Phosphatase 186 U/L (45-117); Anion Gap 9 (5-15); BUN 10 mg/dL (7-18); BUN/Creat Ratio 14.5 RATIO (10-20); Calcium,Total 12.1 mg/dL (8.5-10.1); Chloride 87 mmol/L (98-107); Creatinine, Serum 0.69 mg/dL (0.70-1.30); EST Glomerular Filtration Rate 124 mL/min (>60); Est Glom Filt Rate - Afr Amer 150 mL/min (>60); Estimated Creatinine Clearance 111.11 ml/min; Globulin 4.4 g/dL (2.2-4.2); Glucose 211 mg/dL (74-106); Potassium 2.6 mmol/L (3.5-5.1); Protein, Total 7.1 g/dL (6.4-8.2); Sodium Level 130 mmol/L (136-145); Troponin-I HS 9 pg/mL (3.0-78.0)
[2023-04-20 19:16] LABS: Differential Comment SCANNED
[2023-04-20 19:18] LABS: Lactic Acid 2.1 mmol/L (0.4-1.9)
[2023-04-20] MEDS: 0.9% Normal Saline 1,000 ML 999 ML IV ×2 (19:18→21:56)
--- NOTE | 2023-04-20 19:35 | RAD_ITS ---
STUDY: X-RAY CHEST REASON FOR EXAM: Male, 58 years old. Dyspnea. History of tongue cancer. TECHNIQUE: Single AP portable view of the chest. COMPARISON: None. FINDINGS: Lungs well expanded. There is a calcified granuloma at the left lung base. There is prominence of the vessels in the right lower lobe. Underlying mass cannot be ruled out. There is no demonstrated pleural abnormality. Normal size heart. Mediastinum and left hilum. There is prominence of the lower right hilum. Normal visualized pulmonary arteries. Normal visualized aortic arch and descending thoracic aorta. The thoracic spine is obscured by the mediastinum. Normal visualized ribs, clavicles, and shoulders. There is no demonstrated abnormality of the visualized soft tissue structures of the upper abdomen. RAD/Chest 1 View (Portable) IMPRESSION: 1. Question infiltrate versus malignancy involving the right lower lobe. 2. Calcified granuloma at the left lung base. Electronically Signed: Owen Thomas DO at 19:51 EDT ,
[2023-04-20 19:47] LABS: Magnesium 2.1 mg/dL (1.6-2.6)
[2023-04-20 20:19] LABS: Bacteria 0 SEEN /hpf (None Seen); Mucous, Urine 0 SEEN /hpf (<or=2+); Red Blood Cells-Urine 0 SEEN /hpf (0-5); Squamous Epithelial Cells - UA 0 SEEN /hpf (0-5); White Blood Cells 0 SEEN /hpf (0-5)
[2023-04-20] MEDS: Potassium Chloride 10mEq/100mL 10 MEQ/100 ML IV.SOLN. 100 MEQ IV BOLUS ×4 (20:23→23:24)
[2023-04-20 20:26] LABS: Glucose, Dipstick Normal (Normal); Ketone-Dipstick Negative (Negative); Leukocyte Esterase-Dipstick Negative /ul (Negative); Nitrite-Dipstick Negative (Negative); Occult Blood-Urine Negative /ul (Negative); Protein-Dipstick 100 mg/dl (Negative); Urine Bilirubin Dipstick Negative (Negative); Urine Urobilinogen Normal (Normal)
[2023-04-20 20:27] LABS: Color, Urine Yellow (Yellow); Urine Clarity Sl Cldy (Clear)
--- NOTE | 2023-04-20 20:33 | NURSING ---
[facility] AND LEFT [facility] VM FOR TRANSFER.
[2023-04-20] MEDS: dexAMETHasone 10 MG/ML Vial IV (21:56)
[2023-04-20 22:42] LABS: Reflex Lactate? Y
[2023-04-20 23:28] LABS: Lactic Acid 1.9 mmol/L (0.4-1.9)
[2023-04-21 00:15] VITALS: BP 142/93; PULSE 88; RESP 26; O2SAT 97
[2023-04-21 00:30] VITALS: BP 131/73; PULSE 91; RESP 20
[2023-04-21 00:32] VITALS: O2SAT 97
[2023-04-21 01:19] VITALS: BP 158/84; PULSE 91; RESP 24; O2SAT 98
[2023-04-21 01:35] VITALS: BP 131/75; PULSE 91; RESP 20; O2SAT 97
[2023-04-21 09:49] LABS: Pathologist Review Reviewed
== END 2023-04-21 01:38 | disposition short-term general hospital (02) ==
LOC: ED 18:43
PROVIDERS: Emergency Provider Student in an Organized Health Care Education/Training Program; Visit Provider Student in an Organized Health Care Education/Training Program
DX: J96.91 Respiratory failure, unspecified with hypoxia (principal); C79.51 Secondary malignant neoplasm of bone; R22.1 Localized swelling, mass and lump, neck; I44.0 Atrioventricular block, first degree; Z87.891 Personal history of nicotine dependence; D72.829 Elevated white blood cell count, unspecified; D64.9 Anemia, unspecified; Z79.82 Long term (current) use of aspirin; Z85.810 Personal history of malignant neoplasm of tongue; Z79.899 Other long term (current) drug therapy; R07.9 Chest pain, unspecified
CPT/HCPCS: 70496; 70498; 71045; 71275; 80053; 81001; 82274; 83605; 83735; 84484; 85025; 85610; 85730; 86850; 86900; 86901; 87040; 87086; 87428; 93005; 94002; 96361; 96365; 96366; 96367; 96375; 99285; J7030; J7040; Q9967; A4216